=== PATIENT | male | born 1995 | race American Indian/Alaskan Native ===

== ENCOUNTER 2017-04-24 16:15 | Emergency (ER) | payer OTHER ==
[2017-04-24 16:25] VITALS: BP 122/85; TEMP 98; BMI 22.6
[2017-04-24] MEDS ORDERED: TDAP Vaccine 0.5 mL Syr IM ONE (16:35)
[2017-04-24] MEDS ORDERED: Absorbable Gelatin Sponge Size 12-7 MM STA (16:35)
--- NOTE | 2017-04-24 16:39 | ED PDOC ---
Arrival/HPI - General Chief Complaint: Upper Extremity Problem/Injury Time Seen by Provider: 04/24/17 16:34 Historian: Patient - History of Present Illness Narrative History of Present Illness (Text): 04/24/17 16:36 This 21 yo male presents to this ED c/o left thumb laceration x [employer]. Mother requested Tetanus for patient. Patient stated while lifting a refrigerator, he accidentally cut finger. Patient is right hand dominant. Denies other complains. 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 - HEENT Hx HEENT Disorder: No - Renal Hx Renal Disorder: No - Endocrine/Metabolic Hx Endocrine Disorders: No - Hematological/Oncological Hx Blood Disorders: No - Integumentary Hx Dermatological Disorder: No - Musculoskeletal/Rheumatological Hx Musculoskeletal Disorders: No - Gastrointestinal Hx Gastrointestinal Disorders: No - Genitourinary/Gynecological Hx Genitourinary Disorders: No - Psychiatric Hx Depression: No Hx Emotional Abuse: No Hx Physical Abuse: No Hx Substance Use: No - Surgical History Hx Tonsillectomy: Yes Other/Comment: adnoid removal - Anesthesia Hx Anesthesia: Yes - Suicidal Assessment Feels Threatened In Home Enviroment: No Family/Social History - Physician Review Nursing Documentation Reviewed: Yes Family/Social History: No Known Family HX Smoking Status: Light Smoker < 10 Cigarettes Daily Hx Alcohol Use: No Hx Substance Use: No Hx Substance Use Treatment: No Allergies/Home Meds Allergies/Adverse Reactions: Allergies No Known Allergies Allergy (Verified 04/24/17 16:25) Review of Systems - Review of Systems Constitutional: Normal. absent: Fatigue, Weight Change, Fevers, Night Sweats Eyes: Normal ENT: Normal Respiratory: Normal Cardiovascular: Normal Gastrointestinal: Normal Genitourinary Male: Normal Musculoskeletal: Other (Left thumb skin avulsion) Skin: Normal Neurological: Normal Endocrine: Normal Hemo/Lymphatic: Normal Psychiatric: Normal Physical Exam Vital Signs Temp Pulse Resp BP Pulse Ox 04/24/17 16:25 98.0 F 68 16 97 04/24/17 16:24 98.0 F 68 16 122/85 97 Temperature: Afebrile Blood Pressure: Normal Pulse: Regular Respiratory Rate: Normal Appearance: Positive for: Well-Appearing, Non-Toxic, Comfortable Pain Distress: None Mental Status: Positive for: Alert and Oriented X 3 - Systems Exam Head: Present: Atraumatic, Normocephalic Pupils: Present: PERRL Extroacular Muscles: Present: EOMI Conjunctiva: Present: Normal Mouth: Present: Moist Mucous Membranes Neck: Present: Normal Range of Motion Upper Extremity: Present: Normal ROM, NORMAL PULSES, Neurovascularly Intact, Capillary Refill < 2s, Other ((+) 7 mm oval skin avulsion at left thumb tip. wound mild bleeding, compression applied). No: Cyanosis, Edema, Tenderness, Swelling, Erythema Lower Extremity: Present: Normal Inspection, NORMAL PULSES, Normal ROM, Neurovascularly Intact, Capillary Refill < 2 s. No: Edema, CALF TENDERNESS Neurological: Present: GCS=15, CN II-XII Intact, Speech Normal, Motor Func Grossly Intact, Normal Sensory Function, Normal Cerebellar Funct, Gait Normal Skin: Present: Warm, Dry, Normal Color. No: Rashes Psychiatric: Present: Alert, Oriented x 3 Medical Decision Making ED Course and Treatment: 04/24/17 17:12 Re-evaluation. Patient feels better. Discussed results and plan with patient and mother who expresses understanding. All questions answered and there is agreement with the plan to discharge home with instructions. Patient stable for discharge. Return if symptoms persist or worsen. Re-evaluation Time: 17:13 Reassessment Condition: Re-examined, Improved - Medication Orders Current Medication Orders: Discontinued Medications Cephalexin Monohydrate (Keflex) 500 mg PO STAT STA PRN Reason: Protocol Stop: 04/24/17 16:36 Last Admin: 04/24/17 17:09 Dose: 500 mg Gelatin (Gelfoam Size 12-7) 1 spg MM STAT STA Stop: 04/24/17 16:36 Last Admin: 04/24/17 17:10 Dose: 1 spg Gelatin (Gelfoam Size 12-7) Confirm Administered Dose 1 spg .ROUTE .STK-MED ONE Stop: 04/24/17 17:00 Last Admin: 04/24/17 17:03 Dose: Tetanus/Reduced Diphtheria/Acell Pertussis (Boostrix Vaccine Inj) 0.5 ml IM .ONCE ONE Stop: 04/24/17 16:36 Last Admin: 04/24/17 17:09 Dose: 0.5 ml Disposition/Present on Arrival - Present on Arrival Any Indicators Present on Arrival: No History of DVT/PE: No History of Uncontrolled Diabetes: No Urinary Catheter: No History of Decub. Ulcer: No History Surgical Site Infection Following: None - Disposition Have Diagnosis and Disposition been Completed?: Yes Diagnosis: Skin avulsion Disposition: HOME/ ROUTINE Disposition Time: 17:13 Patient Plan: Discharge Condition: GOOD Discharge Instructions (ExitCare): Skin Avulsion (ED) Additional Instructions: call private doctor for follow up visit and wound recheck in 3 days. Keep wound clean and dry for 3 days, then clean wound with soap and water daily. Return to emergency if symptoms worsen. Prescriptions: Cephalexin [cephalexin] 500 mg PO TID #15 cap
[2017-04-24] MEDS ORDERED: Absorbable Gelatin Sponge Size 12-7 ONE (16:59)
[2017-04-24 17:20] VITALS: PULSE 78; RESP 18; O2SAT 98
== END 2017-04-24 17:20 | disposition home or self-care (01) ==
LOC: ED 16:15
DX: S61.002A Unspecified open wound of left thumb without damage to nail, initial encounter (principal); X50.9XXA Other and unspecified overexertion or strenuous movements or postures, initial encounter; Y92.009 Unspecified place in unspecified non-institutional (private) residence as the place of occurrence of the external cause; Z23 Encounter for immunization

== ENCOUNTER 2017-06-16 13:08 | Emergency (ER) | payer OTHER ==
[2017-06-16 13:09] VITALS: BMI 22.6
--- NOTE | 2017-06-16 13:37 | ED PDOC ---
Arrival/HPI - General Chief Complaint: Male Genitourinary Time Seen by Provider: 06/16/17 13:28 Historian: Patient - History of Present Illness Narrative History of Present Illness (Text): 06/16/17 14:27 21yo M with no PMHx here for evaluation of dysuria and urethral discharge. Patient states that he was sexually active with two females over the past week, denies using condoms. States that the partners deny any symptoms. He denies any painful ulcers, no Fevers, no chills. No swollen lymphadenopathy. Denies ever having similar symptoms in the past. For 3 days he has had mild dysuria, worsening. Noted urethral discharge today and came in to get evaluated. PMHx: Denies. Previous of of seizures, however, states that he has been asymptomatic for the past 4-5 years without any meds. 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 - HEENT Hx HEENT Disorder: No - Renal Hx Renal Disorder: No - Endocrine/Metabolic Hx Endocrine Disorders: No - Hematological/Oncological Hx Blood Disorders: No - Integumentary Hx Dermatological Disorder: No - Musculoskeletal/Rheumatological Hx Musculoskeletal Disorders: No - Gastrointestinal Hx Gastrointestinal Disorders: No - Genitourinary/Gynecological Hx Genitourinary Disorders: No - Psychiatric Hx Depression: No Hx Emotional Abuse: No Hx Physical Abuse: No Hx Substance Use: Yes - Surgical History Hx Tonsillectomy: Yes Other/Comment: adnoid removal - Anesthesia Hx Anesthesia: Yes Hx Anesthesia Reactions: No Hx Malignant Hyperthermia: No - Suicidal Assessment Feels Threatened In Home Enviroment: No Family/Social History - Physician Review Nursing Documentation Reviewed: Yes Family/Social History: Unknown Family HX Smoking Status: Former Smoker Hx Alcohol Use: No Hx Substance Use: Yes Substance used: marijuana Hx Substance Use Treatment: No Allergies/Home Meds Allergies/Adverse Reactions: Allergies No Known Allergies Allergy (Verified 04/24/17 16:25) Home Medications: Home Meds Medication Instructions Recorded Confirmed No Known Home Med 06/16/17 06/16/17 Review of Systems - Physician Review All systems were reviewed & negative as marked: Yes - Review of Systems Constitutional: Normal. absent: Fevers Eyes: Normal ENT: Normal Respiratory: Normal Cardiovascular: Normal Gastrointestinal: Normal Genitourinary Male: Dysuria, Other (urethral discharge) Skin: Normal Neurological: Normal Hemo/Lymphatic: Normal Psychiatric: Normal Physical Exam Vital Signs Reviewed: Yes Vital Signs Temp Pulse Resp BP Pulse Ox 06/16/17 13:38 98.3 F 63 18 144/70 100 Temperature: Afebrile Blood Pressure: Normal Pulse: Regular Respiratory Rate: Normal Appearance: Positive for: Well-Appearing, Non-Toxic, Comfortable Pain Distress: None Mental Status: Positive for: Alert and Oriented X 3 - Systems Exam Mouth: Present: Moist Mucous Membranes Neck: Present: Normal Range of Motion. No: JVD Respiratory/Chest: Present: Clear to Auscultation, Good Air Exchange. No: Respiratory Distress, Accessory Muscle Use Cardiovascular: Present: Normal S1, S2. No: Murmurs Abdomen: No: Tenderness, Distention, Peritoneal Signs, Guarding, Rovsing's Sign Present Genitourinary Male: Present: Normal External Genitalia, Penile Discharge. No: Lesions, Testicle Tenderness, Penile Swelling, Masses, Erythema, Testicle Swelling Upper Extremity: Present: Normal Inspection. No: Edema Lower Extremity: Present: Normal Inspection. No: Edema, CALF TENDERNESS Neurological: Present: GCS=15 Skin: Present: Warm, Dry, Normal Color Lymphatic: No: Inguinal Adenopathy Psychiatric: Present: Alert, Oriented x 3 Medical Decision Making ED Course and Treatment: 06/16/17 14:37 21yo M with Urethral Discharge, Dysuria - Clinically high suspicion for STI - Azithromycin 1g PO - Rocephin 250mg IM - Urine sent for GC testing. - Discussed and patient educated about safe sex practices. No Sex for at least 7 days. Must have all partners treated. Patient agrees to follow up with his PMD. Patient understands and agrees with plan. - Medication Orders Current Medication Orders: Discontinued Medications Azithromycin (Zithromax) 1,000 mg PO STAT STA PRN Reason: Protocol Stop: 06/16/17 13:48 Last Admin: 06/16/17 14:05 Dose: 1,000 mg Ceftriaxone Sodium (Rocephin) 250 mg IM STAT STA PRN Reason: Protocol Stop: 06/16/17 13:48 Last Admin: 06/16/17 14:05 Dose: 250 mg - PA / SUPERVISOR ENGINE REPAIR / Resident Statement / has reviewed & agrees with the documentation as recorded. / has examined the patient and agrees with the treatment plan. Disposition/Present on Arrival - Present on Arrival Any Indicators Present on Arrival: No History of DVT/PE: No History of Uncontrolled Diabetes: No Urinary Catheter: No History of Decub. Ulcer: No History Surgical Site Infection Following: None - Disposition Have Diagnosis and Disposition been Completed?: Yes Diagnosis: Sexually transmitted disease (STD) Disposition: HOME/ ROUTINE Disposition Time: 14:45 Patient Plan: Discharge Patient Problems: Current Active Problems Problem Status Onset Sexually transmitted disease (STD) Acute Condition: GOOD Discharge Instructions (ExitCare): Sexually Transmitted Diseases (ED) Additional Instructions: 1. Follow up with your Primary Care Physician within 3 days. 2. No Sexual Activity for at least 7 days. Ensure complete symptom resolution. 3. All sexual partners must be treated 4. Obtain HIV testing done as out-patient 5. Urine Cultures were sent and you will be contacted if you need further treatment. 6. Return to the ER with any concerning symptoms. Referrals: Melany Loyola MD [Primary Care Provider] - Follow up with primary Forms: [employer] (Somali)
[2017-06-16 13:39] VITALS: RESP 18; TEMP 98.3
[2017-06-16] MEDS ORDERED: cefTRIAXone (Rocephin) 250 mg Inj IM STA (13:47)
[2017-06-16 14:58] VITALS: BP 139/67; PULSE 71; O2SAT 99
== END 2017-06-16 14:15 | disposition home or self-care (01) ==
LOC: ED 13:08
DX: Z20.2 Contact with and (suspected) exposure to infections with a predominantly sexual mode of transmission (principal)
CPT/HCPCS: 87491; 87591; 96372; 99283; J0696

== ENCOUNTER 2017-10-21 10:34 | Emergency (ER) | payer OTHER ==
[2017-10-21 10:35] VITALS: BMI 22.6
[2017-10-21 11:03] VITALS: TEMP 99.1; O2SAT 100
[2017-10-21 12:23] VITALS: BP 138/74; PULSE 69; RESP 18
[2017-10-21] MEDS ORDERED: Penicillin G Benzathine 2.4 Mill Unit/4 ml Syr IM STA (12:40)
--- NOTE | 2017-10-21 13:09 | ED PDOC ---
Arrival/HPI - General Chief Complaint: Male Genitourinary Time Seen by Provider: 10/21/17 11:29 Historian: Patient - History of Present Illness Narrative History of Present Illness (Text): 10/21/17 13:06 22yo male with no Past medical history who present with 3days history of painless penile lesion. Notes that his condom broke while having sex recently and he noticed the lesion days after. He denies penile discharge, urinary symptoms, fever, chills, body ache, sore throat, any other complaint. 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 - HEENT Hx HEENT Disorder: No - Renal Hx Renal Disorder: No - Endocrine/Metabolic Hx Endocrine Disorders: No - Hematological/Oncological Hx Blood Disorders: No - Integumentary Hx Dermatological Disorder: No - Musculoskeletal/Rheumatological Hx Musculoskeletal Disorders: No - Gastrointestinal Hx Gastrointestinal Disorders: No - Genitourinary/Gynecological Hx Genitourinary Disorders: No - Psychiatric Hx Depression: No Hx Emotional Abuse: No Hx Physical Abuse: No Hx Substance Use: Yes - Surgical History Hx Tonsillectomy: Yes Other/Comment: adnoid removal - Anesthesia Hx Anesthesia: Yes Hx Anesthesia Reactions: No Hx Malignant Hyperthermia: No - Suicidal Assessment Feels Threatened In Home Enviroment: No Family/Social History - Physician Review Nursing Documentation Reviewed: Yes Family/Social History: Unknown Family HX Smoking Status: Former Smoker Hx Alcohol Use: No Hx Substance Use: Yes Substance used: marijuana Hx Substance Use Treatment: No Allergies/Home Meds Allergies/Adverse Reactions: Allergies No Known Allergies Allergy (Verified 04/24/17 16:25) Home Medications: Home Meds Medication Instructions Recorded Confirmed No Known Home Med 06/16/17 06/16/17 Review of Systems - Physician Review All systems were reviewed & negative as marked: Yes - Review of Systems Constitutional: Normal Eyes: Normal ENT: Normal Respiratory: Normal Cardiovascular: Normal Gastrointestinal: Normal Genitourinary Male: Normal Musculoskeletal: Normal Skin: Normal Neurological: Normal Endocrine: Normal Hemo/Lymphatic: Normal Psychiatric: Normal Physical Exam Vital Signs Reviewed: Yes Vital Signs Temp Pulse Resp BP Pulse Ox 10/21/17 12:22 69 18 138/74 100 10/21/17 11:00 99.1 F 72 16 140/80 100 Temperature: Afebrile Blood Pressure: Normal Pulse: Regular Respiratory Rate: Normal Appearance: Positive for: Well-Appearing, Non-Toxic, Comfortable Pain Distress: None Mental Status: Positive for: Alert and Oriented X 3 - Systems Exam Head: Present: Atraumatic, Normocephalic Pupils: Present: PERRL Extroacular Muscles: Present: EOMI Conjunctiva: Present: Normal Mouth: Present: Moist Mucous Membranes Neck: Present: Normal Range of Motion Respiratory/Chest: Present: Clear to Auscultation, Good Air Exchange. No: Respiratory Distress, Accessory Muscle Use Cardiovascular: Present: Regular Rate and Rhythm, Normal S1, S2. No: Murmurs Abdomen: Present: Normal Bowel Sounds. No: Tenderness, Distention, Peritoneal Signs Genitourinary Male: Present: Lesions (2 shallow ulcer/leision noted superior to the penile gland ) Back: Present: Normal Inspection Upper Extremity: Present: Normal Inspection. No: Cyanosis, Edema Lower Extremity: Present: Normal Inspection. No: Edema Neurological: Present: GCS=15, CN II-XII Intact, Speech Normal Skin: Present: Warm, Dry, Normal Color. No: Rashes Psychiatric: Present: Alert, Oriented x 3, Normal Insight, Normal Concentration Medical Decision Making ED Course and Treatment: 10/21/17 13:11 PT presented for stated history. He presented with shallow nonpainful penile lesion highly suspicious for syphilis. RPR was ordered Chlamydia/gono also ordered Pt will be treated with PNC 2.4MU He was advised to avoid sex until he gets his result back. - Medication Orders Current Medication Orders: Discontinued Medications Penicillin G Benzathine (Bicillin L-A Inj) 2,400,000 units IM ONCE STA PRN Reason: Protocol Stop: 10/21/17 12:41 Last Admin: 10/21/17 12:58 Dose: 2,400,000 units IM Administration Charges Document 10/21/17 12:58 EQ (Rec: 10/21/17 12:59 EQ [facility] [id number] Injection Site MAR Injection Site Right Gluteus Omkar Charges for Administration # of IM Administrations 1 Disposition/Present on Arrival - Present on Arrival Any Indicators Present on Arrival: No History of DVT/PE: No History of Uncontrolled Diabetes: No Urinary Catheter: No History of Decub. Ulcer: No History Surgical Site Infection Following: None - Disposition Have Diagnosis and Disposition been Completed?: Yes Diagnosis: Penile lesion Disposition: HOME/ ROUTINE Disposition Time: 13:15 Patient Plan: Discharge Condition: STABLE Discharge Instructions (ExitCare): Syphilis (ED) Additional Instructions: Avoid sex until your get your result Follow up with MR in 3days for result Return to Emergency department for any new or worsening symptoms Referrals: Melany Loyola MD [Primary Care Provider] - Follow up with primary
== END 2017-10-21 13:22 | disposition home or self-care (01) ==
LOC: ED 10:34
DX: N48.9 Disorder of penis, unspecified (principal)
CPT/HCPCS: 86592; 87491; 87591; 96372; 99283; J0561